=== PATIENT | female | born 2000 | race African-American/Black ===

== ENCOUNTER 2022-08-04 18:54 | Emergency (ER) | payer MEDICAID, OTHER ==
[~2022-08-04] VITALS: Ht 160 cm; Wt 208.0 kg
[2022-08-04] MEDS ORDERED: predniSONE 20 MG TAB PO ONE (21:30)
[2022-08-04] MEDS ORDERED: IPRATROPIUM 0.5MG/ALBUTEROL 2.5MG INH SOL UD 3ML (DUONEB) NEB ONE (21:30)
[2022-08-04] MEDS ORDERED: BENZONATATE 100MG CAPSULE PO ONE (21:30)
[2022-08-04] MEDS ORDERED: PRED20TA PO (22:11)
[2022-08-04] MEDS ORDERED: BENZ200C70 PO (22:11)
[2022-08-04] MEDS ORDERED: VENTAER INH (22:11)
[2022-08-04 22:30] VITALS: BP 146/74
== END 2022-08-04 22:34 | disposition home or self-care (01) ==
LOC: M ED 18:54
DX: J45.901 Unspecified asthma with (acute) exacerbation (principal); J06.9 Acute upper respiratory infection, unspecified; F32.A Depression, unspecified
CPT/HCPCS: 71046; 87486; 87581; 87633; 87798; 94640; 99283; J7512

== ENCOUNTER 2022-08-05 08:08 | Emergency (ER) | payer MEDICAID, OTHER ==
[~2022-08-05] VITALS: Ht 160 cm; Wt 94.5 kg
[~2022-08-05 08:08] MED LIST: BENZ200C70 PO; PRED20TA PO; VENTAER INH
[2022-08-05] MEDS ORDERED: IPRATROPIUM 0.5MG/ALBUTEROL 2.5MG INH SOL UD 3ML (DUONEB) NEB ONE (08:25)
[2022-08-05] MEDS ORDERED: ALBUTEROL SULFATE 2.5MG/0.5ML INH NEB SOLN NEB ONE (08:25)
[2022-08-05] MEDS ORDERED: BENZONATATE 100MG CAPSULE PO ONE (10:05)
[2022-08-05 10:19] VITALS: BP 138/67
== END 2022-08-05 10:27 | disposition home or self-care (01) ==
LOC: EDBD 08:08 → M ED 08:08
DX: J45.901 Unspecified asthma with (acute) exacerbation (principal); R06.2 Wheezing; J01.90 Acute sinusitis, unspecified
CPT/HCPCS: 94640; 96372; 99284; J1100